=== PATIENT | male | born 1965 | race Caucasian/White ===

== ENCOUNTER 2019-04-03 13:42 | Emergency (ER) | payer OTHER ==
[2019-04-03] MEDS ORDERED: ORPHENADRINE CITRATE 30 MG/ML ML ONE (15:16)
== END 2019-04-03 16:02 | disposition home or self-care (01) ==
LOC: EDH 13:42
DX: S20.221A Contusion of right back wall of thorax, initial encounter (principal); I10 Essential (primary) hypertension; W18.2XXA Fall in (into) shower or empty bathtub, initial encounter; Y93.89 Activity, other specified; Y92.89 Other specified places as the place of occurrence of the external cause; Y99.8 Other external cause status
CPT/HCPCS: 71046; 96372; 99284; J2360